=== PATIENT | female | born 1965 | race Asian ===

== ENCOUNTER 2016-04-13 09:30 | Outpatient (CLI) | payer OTHER, MEDICAID | END 2016-04-13 20:06 | disposition home or self-care (01) | LOC: SMI 09:30 | PROVIDERS: ATTEND Orthopaedic Surgery | DX: M75.102 Unspecified rotator cuff tear or rupture of left shoulder, not specified as traumatic (principal); M19.012 Primary osteoarthritis, left shoulder; M48.02 Spinal stenosis, cervical region; M47.892 Other spondylosis, cervical region; M50.21 Other cervical disc displacement, high cervical region | CPT/HCPCS: 72141; 73221 ==

== ENCOUNTER 2016-08-22 13:17 | Emergency (ER) | payer OTHER, MEDICAID ==
[~2016-08-22] VITALS: Ht 149.9 cm; Wt 43.5 kg
[2016-08-22 13:33] VITALS: BP_SYST 132
[2016-08-22] MEDS ORDERED: ACETAMINOPHEN 325 MG TABLET PO ONE (14:00)
[2016-08-22 15:00] VITALS: BP_SYST 132
== END 2016-08-22 15:00 | disposition home or self-care (01) ==
LOC: SED 13:17
DX: M25.562 Pain in left knee (principal); M54.2 Cervicalgia; M25.511 Pain in right shoulder; E11.9 Type 2 diabetes mellitus without complications; Z95.1 Presence of aortocoronary bypass graft; Z88.8 Allergy status to other drugs, medicaments and biological substances; W19.XXXA Unspecified fall, initial encounter; Y93.89 Activity, other specified; Y92.22 Religious institution as the place of occurrence of the external cause; Y99.8 Other external cause status
CPT/HCPCS: 71010; 73560-TC; 99284

== ENCOUNTER 2016-09-02 10:04 | Outpatient (CLI) | payer OTHER, MEDICAID | END 2016-09-02 18:27 | disposition home or self-care (01) | LOC: SMI 10:04 | PROVIDERS: ATTEND Orthopaedic Surgery | DX: M25.462 Effusion, left knee (principal) | CPT/HCPCS: 73721 ==

== ENCOUNTER 2016-09-19 19:07 | Emergency (ER) | payer OTHER, MEDICAID ==
[~2016-09-19] VITALS: Ht 149.9 cm; Wt 43.5 kg
[2016-09-19 19:07] VITALS: BP_SYST 141
[2016-09-19] MEDS ORDERED: LIDOCAINE/EPI 1% 1:100000 20 ML VIAL IJ ONE (20:15)
[2016-09-19] MEDS ORDERED: VANCOMYCIN HCL 1,000 MG in NS 250 ML IV ONE (20:30)
[2016-09-19] MEDS ORDERED: LIDOCAINE 1%, 20 ML MDV 20 ML ONE (20:34)
[2016-09-19] MEDS ORDERED: VANCOMYCIN HCL 1000 MG/VIAL IV ONE (20:55)
[2016-09-19] MEDS ORDERED: KETOROLAC TROMETHAMINE 30 MG VIAL IVP ONE (21:30)
[2016-09-19 23:10] VITALS: BP_SYST 144
== END 2016-09-19 23:10 | disposition home or self-care (01) ==
LOC: SED 19:07
DX: L02.219 Cutaneous abscess of trunk, unspecified (principal); E11.9 Type 2 diabetes mellitus without complications; K21.9 Gastro-esophageal reflux disease without esophagitis; Z88.1 Allergy status to other antibiotic agents; Z88.8 Allergy status to other drugs, medicaments and biological substances
CPT/HCPCS: 10060; 87070; 87075; 87186; 96365; 96366; 96375; 99285; J1885; J2001; J3370; J7050

== ENCOUNTER 2016-09-21 15:59 | Emergency (ER) | payer OTHER, MEDICAID ==
[~2016-09-21] VITALS: Ht 149.9 cm; Wt 43.5 kg
[2016-09-21 16:25] VITALS: BP_SYST 120
[2016-09-21] MEDS ORDERED: LIDOCAINE/EPI 2% 1:100000 20 ML VIAL IJ ONE (17:30)
[2016-09-21 18:01] VITALS: BP_SYST 120
== END 2016-09-21 18:01 | disposition home or self-care (01) ==
LOC: SED 15:59
DX: Z48.01 Encounter for change or removal of surgical wound dressing (principal); N89.8 Other specified noninflammatory disorders of vagina; K21.9 Gastro-esophageal reflux disease without esophagitis; E11.9 Type 2 diabetes mellitus without complications; Z90.89 Acquired absence of other organs; Z95.1 Presence of aortocoronary bypass graft; Z88.8 Allergy status to other drugs, medicaments and biological substances
CPT/HCPCS: 99283

== ENCOUNTER 2016-09-26 07:09 | Emergency (ER) | payer OTHER, MEDICAID ==
[~2016-09-26] VITALS: Ht 149.9 cm; Wt 43.5 kg
[2016-09-26 07:13] VITALS: BP_SYST 132
[2016-09-26] MEDS ORDERED: BACITRACIN/POLYMYXIN B SULFATE 30 GM TOPICAL OINT. TP ONE (08:30)
[2016-09-26] MEDS ORDERED: BACITRACIN 1 GM OINT TP ONE (08:35)
[2016-09-26 08:45] VITALS: BP_SYST 128
== END 2016-09-26 08:45 | disposition home or self-care (01) ==
LOC: SED 07:09
DX: Z48.01 Encounter for change or removal of surgical wound dressing (principal); E11.9 Type 2 diabetes mellitus without complications; I10 Essential (primary) hypertension; Z88.8 Allergy status to other drugs, medicaments and biological substances
CPT/HCPCS: 99283

== ENCOUNTER 2018-06-27 10:16 | Outpatient (CLI) | payer OTHER, MEDICAID | END 2018-06-27 20:27 | disposition home or self-care (01) | LOC: SUS 10:16 | PROVIDERS: ATTEND Specialist | DX: R10.2 Pelvic and perineal pain (principal) | CPT/HCPCS: 76856-TC ==

== ENCOUNTER 2021-01-20 07:05 | Day surgery (SDC) | payer OTHER, MEDICAID, SELFPAY ==
[~2021-01-20] VITALS: Ht 149.9 cm; Wt 47.6 kg
[2021-01-20] MEDS ORDERED: SIMETHICONE 40 MG/0.6 ML ML ONE (09:42)
[2021-01-20] MEDS ORDERED: fentaNYL CITRATE/PF 100 MCG/2 ML AMP ONE (09:43)
[2021-01-20] MEDS ORDERED: MIDAZOLAM HCL 5 MG/5 ML VIAL ONE ×2 (09:43→10:12)
[2021-01-20 12:37] VITALS: BP_SYST 128
== END 2021-01-20 11:20 | disposition home or self-care (01) ==
LOC: SDS 07:05 → SMU 07:06 → SDS 11:20
PROVIDERS: ATTEND Internal Medicine Gastroenterology
DX: Z12.11 Encounter for screening for malignant neoplasm of colon (principal); K29.50 Unspecified chronic gastritis without bleeding; K64.8 Other hemorrhoids; K62.89 Other specified diseases of anus and rectum; K22.70 Barrett's esophagus without dysplasia; D80.9 Immunodeficiency with predominantly antibody defects, unspecified; R74.8 Abnormal levels of other serum enzymes; I25.10 Atherosclerotic heart disease of native coronary artery without angina pectoris; E11.9 Type 2 diabetes mellitus without complications; K21.00 Gastro-esophageal reflux disease with esophagitis, without bleeding; Z86.010 Personal history of colon polyps; Z79.899 Other long term (current) drug therapy; Z20.822 Contact with and (suspected) exposure to COVID-19
CPT/HCPCS: 36415; 43239; 87081; 88305; 88312; 88313; 99152; 99153; G0105; G0378; J2250; J3010; U0003; 45378